=== PATIENT | female | born 1955 | race African-American/Black ===

== ENCOUNTER 2017-10-04 11:37 | Inpatient (IN) | payer MEDICARE, MEDICAID ==
[~2017-10-04] VITALS: Ht 149.9 cm; Wt 62.6 kg
--- NOTE | 2017-10-04 11:40 | NUR ---
PT BIB [facility] FROM [facility] C/O HTN, ANXIETY, PALPITATIONS, CHEST PRESSURE, HEADACHE, AND "FEEL THE WHEEZES". NO SOB NOTED HOWEVER WHEEZES ARE AUDIBLE. A/OX4. NO NEURO DEFICITS NOTED. SKIN WARM NONDIAPHORETIC. +NAUSEA, -VOMITING/DIARRHEA. DENIES CHEST PAIN, DESCRIBES THE PRESSURE "LIKE I CAN'T CATCH MY BREATH". PT APPEARS ANXIOUS, SPEAKING QUICKLY AND AT LENGTH. PLACED IN ER BED 04 ON MONITOR.
[2017-10-04] MEDS ORDERED: IPRATROPIUM NEB FS 0.5 MG/2.5 ML AMPUL.NEB NEB ONE (12:00)
[2017-10-04] MEDS ORDERED: ASPIRIN 325 MG TABLET PO ONE (12:00)
[2017-10-04] MEDS ORDERED: ALBUTEROL FS 2.5 MG/0.5 ML VIAL.NEB NEB ONE (12:00)
--- NOTE | 2017-10-04 12:01 | NUR ---
PAGED RT FOR BREATHING TX
[2017-10-04] MEDS ORDERED: IPRATROPIUM NEB FS 0.5 MG/2.5 ML AMPUL.NEB ONE (12:07)
[2017-10-04] MEDS ORDERED: ALBUTEROL FS 2.5 MG/0.5 ML VIAL.NEB ONE (12:07)
[2017-10-04 12:17] LABS: BASOPHILS # (AUTO) 0.1 /CMM (0.0-0.2); BASOPHILS % (AUTO) 1.1 % (0.0-2.0); EOSINOPHILS # (AUTO) 0.2 /CMM (0.0-0.7); EOSINOPHILS % (AUTO) 3.8 % (0.0-6.0); HEMATOCRIT 35 % (33-45); HEMOGLOBIN 10.9 g/dL (11.5-14.8); LYMPHOCYTES # (AUTO) 2.1 /CMM (0.8-4.8); LYMPHOCYTES % (AUTO) 33.5 % (20.0-44.0); MEAN CORPUSCULAR HEMOGLOBIN 24 PG (26.0-33.0); MEAN CORPUSCULAR HGB CONC 31 g/dl (31.0-36.0); MEAN CORPUSCULAR VOLUME 77 fL (82-100); MONOCYTES # (AUTO) 0.7 /CMM (0.1-1.30); MONOCYTES % (AUTO) 10.7 % (2.0-12.0); NEUTROPHILS # (AUTO) 3.1 /CMM (1.8-8.9); NEUTROPHILS % (AUTO) 50.9 % (43.0-81.0); PLATELET COUNT (AUTO) 324 /CMM (150-450); RED BLOOD CELL COUNT(AUTO) 4.54 MIL/uL (4.0-5.2); WHITE BLOOD COUNT (AUTO) 6.2 K/uL (4.3-11.0)
[2017-10-04 12:19] LABS: CALCIUM, SERUM 9.2 mg/dL (8.5-10.1); CARBON DIOXIDE 26 mmol/L (21-32); CHLORIDE 106 mmol/L (98-107); CREATININE 0.7 mg/dL (0.6-1.3); GLUCOSE 96 mg/dL (74-106); POTASSIUM 3.7 mmol/L (3.5-5.1); SODIUM SERUM 141 mmol/L (136-145); UREA NITROGEN, BLOOD 6 mg/dL (7-18)
[2017-10-04 12:27] LABS: TROPONIN I < 0.017 ng/mL (0.00-0.056)
[2017-10-04 12:32] LABS: ALANINE AMINOTRANSFERASE 18 U/L (12-78); ALBUMIN 3.6 g/dL (3.4-5.0); ALKALINE PHOSPHATASE 86 U/L (46-116); ASPARTATE AMINOTRANSFERASE 15 U/L (15-37); B-TYPE NATRIURETIC PEPTIDE 35 PG/ML (0-125); BILIRUBIN,TOTAL 0.2 mg/dL (0.2-1.0); TOTAL PROTEIN, SERUM 7.4 g/dL (6.4-8.2)
[2017-10-04] MEDS ORDERED: ASPIRIN 325 MG TABLET ONE (12:34)
[2017-10-04] MEDS ORDERED: LORAZEPAM INJ 2 MG/ML VIAL ONE (12:57)
[2017-10-04] MEDS ORDERED: LORAZEPAM INJ 2 MG/ML VIAL IV ONE (13:00)
--- NOTE | 2017-10-04 13:32 | NUR ---
RESTING QUIETLY, NAD NOTED. ALL NEEDS ATTENDED TO. VSS.
--- NOTE | 2017-10-04 14:04 | NUR ---
REPORT GIVEN TO XAVIER CAPPS FOR ADMISSION
--- NOTE | 2017-10-04 15:15 | NUR ---
PT TRANSPORTED TO [facility] in [place] IN STABLE CONDITION VIA ACLS PROTOCOL
--- NOTE | 2017-10-04 15:20 | NUR ---
SCHEDULING ANALYST NOTES RECEIVED PT FROM E.R. STAFF, AWAKE, ALERT AND ORIENTED, DENIES PAIN, NOT IN DISTRESS, ASSISTED TO BED, MADE COMFORTABLE, ROOM SET UP ORIENTATION PROVIDED, VERBALIZED UNDERSTANDING, CALL LIGHT WITHIN REACH, AWAITING ADMISSION ORDERS FROM MD.
[2017-10-04] MEDS ORDERED: IV NS 0.9% 1,000 ML IV PRN (15:21)
[2017-10-04] MEDS ORDERED: ACETAMINOPHEN 325 MG TABLET PO PRN (15:30)
[2017-10-04] MEDS ORDERED: MAGNESIUM HYDROXIDE 30 ML UDC PO PRN (15:30)
[2017-10-04] MEDS ORDERED: MAG HYDROX/AL HYDROX/SIMETH 30 ML UDC PO PRN (15:30)
[2017-10-04] MEDS ORDERED: Z GUARD REMEDY 2 OZ OINT TP PRN (15:30)
[2017-10-04] MEDS ORDERED: ALPRAZOLAM 0.25 MG TABLET PO PRN (15:30)
[2017-10-04] MEDS ORDERED: HYDROCODONE/APAP 5/325MG 1 EACH TABLET PO PRN (15:30)
[2017-10-04 16:07] LABS: CHOLESTEROL 187 mg/dL (<200); HDL CHOLESTEROL 70 mg/dL (40-60); LDL 105 mg/dL (0-99); TRIGLYCERIDES 62 mg/dL (30-150)
[2017-10-04] MEDS ORDERED: hydrALAZINE HCL 25 MG TABLET PO PRN ×2 (17:30→18:00)
[2017-10-04] MEDS: ENOXAPARIN SODIUM 40 MG/0.4 ML DISP.SYRIN SQ SCH (17:54)
--- NOTE | 2017-10-04 19:00 | NUR ---
PROJECT DEVELOPMENT MANAGER NOTES PT IN BED, AWAKE, ALERT AND ORIENTED, NO COMPLAINT OF CHEST PAIN, NOT IN DISTRESS, TOLERATING ROOM AIR WELL, ON TELE MONITORING, SR 60'S, SEEN BY DR. BALDERRAMA AND DR. FUENTES, PROCEDURE EXPLAINED TO PT BY MD, VERBALIZED UNDERSTANDING, CONSENT FORM SIGNED, ASSISTED WITH DINNER, IV FLUIDS INFUSING WELL, CALL LIGHT PLACED WITHIN REACH, ALL NEEDS ATTENDED.
--- NOTE | 2017-10-04 19:18 | NUR ---
RN NOTES RECEIVED PT IN BED, AWAKE, A/O 3, VERBALLY RESPONSIVE. NO DISTRESS, NO SOB NOTED. RESPIRATION IS EVEN AND UNLABORED. DENIES ANY CHEST PAIN OR ANY PAIN OR DISCOMFORT AT THIS TIME. IV SITE ON RAC INTACT AND PATENT, NO S/S OF INFILTRATION AT THIS TIME. PLAN OF CARE DISCUSSED WITH P[T , VERBALIZED UNDERSTANDING. ALL NEEDS ATTENDED AND MET. KEPT COMFORTABLE. SAFETY PRECAUTIONS OBSERVED. CALL LIGHT WITHIN REACH. WILL CONTINUE TO MONITOR.
[2017-10-04 20:00] VITALS: BP 124/78
[2017-10-04] MEDS: ALBUTEROL FS 2.5 MG/3 ML VIAL.NEB NEB PRN (20:32)
[2017-10-04 20:52] LABS: IRON, SERUM 76 ug/dl (50-175); TOTAL IRON BINDING CAPACITY 401 ug/dl (250-450)
[2017-10-04 21:31] LABS: TROPONIN I < 0.017 ng/mL (0.00-0.056)
[2017-10-04] MEDS: ATORVASTATIN 10 MG TABLET PO SCH (22:01)
[2017-10-05] VITALS: BP 166/77
[2017-10-05] MEDS: ZOLPIDEM TARTRATE 5 MG TABLET PO PRN ×2 (00:57→23:40)
[2017-10-05 04:00] VITALS: BP 153/84
--- NOTE | 2017-10-05 05:00 | NUR ---
PT'S IV LINE ON RAC LEAKING, REMOVED. PRESSURE APPLIED. NO BLEEDING NOTED. INSERTED IV ON RFA G # 22, WITH GOOD VENOUS RETURN . PT ARASELI WELL.
--- NOTE | 2017-10-05 06:54 | NUR ---
RN NOTES PT IN BED, RESTING COMFORTABLY, AROUSES EASILY. , A/O 3, VERBALLY RESPONSIVE. NO DISTRESS, NO SOB NOTED. RESPIRATION IS EVEN AND UNLABORED. DENIES ANY CHEST PAIN OR ANY PAIN OR DISCOMFORT AT THIS TIME. IV SITE ON RFA INTACT AND PATENT, NO S/S OF INFILTRATION AT THIS TIME. IVF INFUSING WELL. PT ON NPO EXCEPT MEDS STARTING MIDNIGHT., PT AWARE. ALL NEEDS ATTENDED AND MET. KEPT COMFORTABLE. SAFETY PRECAUTIONS OBSERVED. CALL LIGHT WITHIN REACH. WILL ENDORSE TO NEXT SHIFT FOR FRED.
[2017-10-05] MEDS: ALBUTEROL FS 2.5 MG/3 ML VIAL.NEB NEB PRN (07:23)
--- NOTE | 2017-10-05 07:30 | NUR ---
BRAKE REPAIRER AIR NOTES PT IN BED, AWAKE, ALERT AND ORIENTED, NO COMPLAINT OF PAIN OR ANY DISCOMFORT, RESPIRATIONS NORMAL, CALL LIGHT WITHIN REACH, IV FLUIDS INFUSING WELL, FOR STRESS TEST TODAY, PT INFORMED OF PLAN OF CARE, VERBALIZED UNDERSTANDING.
[2017-10-05 08:00] VITALS: BP 158/98
[2017-10-05] MEDS ORDERED: LOSARTAN POTASSIUM 25 MG TABLET PO SCH (09:00)
[2017-10-05] MEDS: ASPIRIN 81 MG TAB.CHEW PO SCH (09:01)
[2017-10-05 09:59] LABS: HEMATOCRIT 34 % (33-45); HEMOGLOBIN 10.9 g/dL (11.5-14.8); MEAN CORPUSCULAR HEMOGLOBIN 26 PG (26.0-33.0); MEAN CORPUSCULAR HGB CONC 32 g/dl (31.0-36.0); MEAN CORPUSCULAR VOLUME 80 fL (82-100); PLATELET COUNT (AUTO) 304 /CMM (150-450); RDW COEFFICIENT OF VARIATION 31.4 (11.5-15.0); RED BLOOD CELL COUNT(AUTO) 4.28 MIL/uL (4.0-5.2); WHITE BLOOD COUNT (AUTO) 5.1 K/uL (4.3-11.0)
[2017-10-05 10:09] LABS: CALCIUM, SERUM 8.7 mg/dL (8.5-10.1); CREATININE 0.7 mg/dL (0.6-1.3); MAGNESIUM 1.8 mg/dL (1.8-2.4); PHOSPHORUS 3.4 mg/dL (2.5-4.9); POTASSIUM 3.6 mmol/L (3.5-5.1)
[2017-10-05 11:51] LABS: LYMPHOCYTES % (MANUAL) 24 % (16-48); MONOCYTES % (MANUAL) 8 % (0-11.0); NEUTROPHILS % (MANUAL) 68 (42-76)
[2017-10-05 12:00] VITALS: BP 152/74
--- NOTE | 2017-10-05 12:00 | NUR ---
RN MS NOTES PT IN BED, AWAKE, ALERT AND ORIENTED, NO COMPLAINT OF PAIN, NOT IN DISTRESS, PICKED UP FOR STRESS TEST, IN STABLE CONDITION.
[2017-10-05] MEDS ORDERED: REGADENOSON 0.4 MG/5 ML DISP.SYRIN IVP ONE (12:30)
[2017-10-05 16:00] VITALS: BP 152/68
[2017-10-05] MEDS: LOSARTAN POTASSIUM 25 MG TABLET PO SCH (16:40)
[2017-10-05] MEDS: HYDROCODONE/APAP 10/325MG 1 EA TABLET PO PRN ×2 (16:41→22:35)
[2017-10-05] MEDS: ENOXAPARIN SODIUM 40 MG/0.4 ML DISP.SYRIN SQ SCH (16:48)
--- NOTE | 2017-10-05 19:00 | NUR ---
RN MS NOTES PT IN BED, AWAKE, ALERT AND ORIENTED, PAIN MEDICATION GIVEN FOR PAIN MANAGEMENT, NOT IN DISTRESS, TOLERATING CURRENT DIET WELL, CALL LIGHT WITHIN REACH, IV FLUIDS INFUSING WELL, PM MEDS GIVEN, ALL NEEDS ATTENDED.
--- NOTE | 2017-10-05 19:15 | NUR ---
MS RN NOTES RECEIVED PT IN BED, AWAKE, A/O X 3, NO DISTRESS, NO SOB NOTED. VERBALLY RESPONSIVE. ABLE TO MAKE NEEDS KNOWN. IV SITE ON RFA G # 22, INTACT AND PATENT, NO S/S OF INFILTRATION NOTED. IVF INFUSING WELL. DENIES ANY CHEST PAIN OR DISCOMFORT AT THIS TIME. ALL NEEDS ATTENDED AND MET. KEPT COMFORTABLE. CALL LIGHT WITHIN REACH. SAFETY PRECAUTIONS OBSERVED. WILL CONTINUE TO MONITOR.
[2017-10-05 20:00] VITALS: BP 124/77
[2017-10-05] MEDS ORDERED: ATORVASTATIN 10 MG TABLET ONE (22:16)
[2017-10-05] MEDS: ATORVASTATIN 10 MG TABLET PO SCH (22:31)
[2017-10-05] MEDS: ONDANSETRON HCL/PF 4 MG/2 ML VIAL IVP PRN (22:37)
[2017-10-06] MEDS: IV NS 0.9% 1,000 ML IV PRN ×2 (03:27→13:30)
[2017-10-06] MEDS: HYDROCODONE/APAP 10/325MG 1 EA TABLET PO PRN ×3 (04:24→22:04)
--- NOTE | 2017-10-06 06:31 | NUR ---
MS RN NOTES PT IN BED, RESTING COMFORTABLY AT THIS TIME, AROUSES EASILY, A/O X 3, NO DISTRESS, NO SOB NOTED. VERBALLY RESPONSIVE. ABLE TO MAKE NEEDS KNOWN. IV SITE ON RFA G # 22, INTACT AND PATENT, NO S/S OF INFILTRATION NOTED. IVF INFUSING WELL. PT IS AMBULATORY. DENIES ANY CHEST PAIN OR DISCOMFORT AT THIS TIME. CALL LIGHT WITHIN REACH. SAFETY PRECAUTIONS OBSERVED. WILL ENDORSE TO NEXT SHIFT FOR FRED.
[2017-10-06 06:43] LABS: CALCIUM, SERUM 8.8 mg/dL (8.5-10.1); CREATININE 0.8 mg/dL (0.6-1.3); MAGNESIUM 1.8 mg/dL (1.8-2.4); PHOSPHORUS 4.2 mg/dL (2.5-4.9); POTASSIUM 3.9 mmol/L (3.5-5.1)
[2017-10-06 06:48] LABS: EOSINOPHILS # (AUTO) 0.3 /CMM (0.0-0.7); EOSINOPHILS % (AUTO) 5.6 % (0.0-6.0); HEMATOCRIT 34 % (33-45); HEMOGLOBIN 10.8 g/dL (11.5-14.8); LYMPHOCYTES # (AUTO) 1.7 /CMM (0.8-4.8); LYMPHOCYTES % (AUTO) 32.1 % (20.0-44.0); MEAN CORPUSCULAR HEMOGLOBIN 25 PG (26.0-33.0); MEAN CORPUSCULAR HGB CONC 32 g/dl (31.0-36.0); MEAN CORPUSCULAR VOLUME 79 fL (82-100); MONOCYTES % (AUTO) 18.5 % (2.0-12.0); NEUTROPHILS # (AUTO) 2.3 /CMM (1.8-8.9); NEUTROPHILS % (AUTO) 43.8 % (43.0-81.0); PLATELET COUNT (AUTO) 319 /CMM (150-450); RDW COEFFICIENT OF VARIATION 30.3 (11.5-15.0); RED BLOOD CELL COUNT(AUTO) 4.29 MIL/uL (4.0-5.2); WHITE BLOOD COUNT (AUTO) 5.2 K/uL (4.3-11.0)
--- NOTE | 2017-10-06 07:00 | NUR ---
RN NOTES: PATIENT RESTING IN BED. NONLABORED BREATHING NOTED. NO SIGNS OF DISTRESS. AOX3. IV SITE PATENT AND INTACT. BED IN LOWEST LOCKED POSITION. CALL LIGHT WITHIN REACH. WILL CONTINUE TO MONITOR
[2017-10-06 08:00] VITALS: BP 127/79
[2017-10-06] MEDS: ASPIRIN 81 MG TAB.CHEW PO SCH (08:08)
[2017-10-06] MEDS: LOSARTAN POTASSIUM 25 MG TABLET PO SCH ×2 (08:08→17:17)
[2017-10-06 09:02] LABS: BAND % (MANUAL) 1 % (0.0-5.0); EOSINOPHILS % (MANUAL) 3 % (0-4); LYMPHOCYTES % (MANUAL) 35 % (16-48); MONOCYTES % (MANUAL) 9 % (0-11.0); NEUTROPHILS % (MANUAL) 52 (42-76)
--- NOTE | 2017-10-06 10:44 | NUR ---
RN NOTES: PATIENT STATES HAVING A HEADACHE. PATIENT PERRLA. NO WEAKNESS UPON HAND GRASP. NO SENSORY DEFICIT. NONLABORED BREATHING NOTED. PATIENT ABLE TO AMBULATE TO BATHROOM. NO ALTERED MENTAL STATUS.
[2017-10-06] MEDS: ALBUTEROL FS 2.5 MG/3 ML VIAL.NEB NEB PRN (11:06)
--- NOTE | 2017-10-06 12:10 | NUR ---
RN NOTES: DR BALDERRAMA ORDERED TO TRANSFER PATIENT TO TELE. PATIENT SINUS RHYTHEM 60 BEATS/MIN
[2017-10-06] MEDS ORDERED: hydrALAZINE HCL 25 MG TABLET PO PRN (12:30)
[2017-10-06] MEDS ORDERED: diphenhydrAMINE HCL 50 MG/ML VIAL IV PRN (12:30)
--- NOTE | 2017-10-06 14:22 | NUR ---
GOOD IV LINE NEEDED, RN WILL CALL WHEN READY.
[2017-10-06] MEDS ORDERED: IV NS 0.9% 250 ML IV ONE (14:50)
[2017-10-06] MEDS ORDERED: IOHEXOL-350 100 ML VIAL IV ONE (14:50)
--- NOTE | 2017-10-06 15:31 | NUR ---
SECOND IV LINE STILL NO GOOD, RN WILL CALL WHEN READY.
[2017-10-06 16:00] VITALS: BP 138/84
--- NOTE | 2017-10-06 16:09 | NUR ---
RN NOTES: ATTEMPTED IV LINE INSERTION X2. GAUGE 20 ON RIGHT AC STARTED PATENT AND INTACT. HOWEVER, DURING CTA CAROTID, IT INFILTRATED. PATIENT OFFERED ICE PACK AND IV LINE REMOVED. UNABLE TO PERFORM CTA CAROTID. DR BALDERRAMA NOTIFIED AND ORDERED TO DISCONTINUE THE CTA CAROTID. GAUGE 22 ON RIGHT ARM PATENT AND INTACT
[2017-10-06] MEDS: ENOXAPARIN SODIUM 40 MG/0.4 ML DISP.SYRIN SQ SCH (17:21)
--- NOTE | 2017-10-06 18:15 | NUR ---
RN NOTES: ATTEMPTED IV LINE INSERTION X2. GAUGE 20 ON RIGHT AC STARTED PATENT AND INTACT. HOWEVER, DURING CTA CAROTID, IT INFILTRATED. PATIENT OFFERED ICE PACK AND IV LINE REMOVED. UNABLE TO PERFORM CTA CAROTID. DR BALDERRAMA NOTIFIED AND ORDERED TO DISCONTINUE THE CTA CAROTID. CTA BRAIN DISCONTINUED WELL DUE TO UNAVAILABILITY OF ACCESS. NO ORDERS FOR A MIDLINE FROM DR BALDERRAMA. SPOKE WITH CARRIE FROM RADIOLOGY. GAUGE 22 ON RIGHT ARM PATENT AND INTACT
--- NOTE | 2017-10-06 19:20 | NUR ---
MS RN NOTES RECEIVED PT IN BED, AWAKE, A/O X 3, NO DISTRESS, NO SOB NOTED. VERBALLY RESPONSIVE. ABLE TO MAKE NEEDS KNOWN. IV SITE ON RFA G # 22, INTACT AND PATENT, NO S/S OF INFILTRATION NOTED. IVF INFUSING WELL. DENIES ANY CHEST PAIN OR DISCOMFORT AT THIS TIME. PT IS AMBULATORY. VOIDING FREELY WITH YELLOW URINE. ALL NEEDS ATTENDED AND MET. KEPT COMFORTABLE. CALL LIGHT WITHIN REACH. SAFETY PRECAUTIONS OBSERVED. WILL CONTINUE TO MONITOR.
--- NOTE | 2017-10-06 19:30 | NUR ---
RN FINAL NOTES: PATIENT RESTING IN BED. NONLABORED BREATHING NOTED. NO SIGNS OF DISTRESS. AOX3. IV SITE PATENT AND INTACT. BED IN LOWEST LOCKED POSITION. CALL LIGHT WITHIN REACH. PATIENT DENIES CHEST PAIN. SINUS RHYTHM ON TELE MONITOR. PATIENT PERRLA, ABLE TO AMBULATE TO BATHROOM, NO WEAKNESS, NO SLURRED SPEECH. PATIENT KEPT CLEAN AND DRY. PATIENT ATE DINNER. BED IN LOWEST LOCKED POSITION. CALL LIGHT WITHIN REACH. ENDORSED TO NEXT SHIFT
[2017-10-06 20:00] VITALS: BP 146/89
[2017-10-06] MEDS: ONDANSETRON HCL/PF 4 MG/2 ML VIAL IVP PRN (20:20)
[2017-10-06 20:29] VITALS: BP 146/89
[2017-10-06] MEDS: ATORVASTATIN 10 MG TABLET PO SCH (22:02)
[2017-10-07] VITALS (7 sets, daily range): BP systolic 136–159; BP diastolic 80–110
[2017-10-07] MEDS: ZOLPIDEM TARTRATE 5 MG TABLET PO PRN (01:52)
[2017-10-07] MEDS: IV NS 0.9% 1,000 ML IV PRN (06:26)
[2017-10-07] MEDS: HYDROCODONE/APAP 10/325MG 1 EA TABLET PO PRN ×2 (06:31→11:57)
--- NOTE | 2017-10-07 07:00 | NUR ---
WASHER OFF NOTES PT IN BED, AWAKE, A/O X 3,WATCHING TV AT THIS TIME. NO DISTRESS, NO SOB NOTED. VERBALLY RESPONSIVE. ON TELE MONITOR, A PACING 61. ABLE TO MAKE NEEDS KNOWN. IV SITE ON RFA G # 22, INTACT AND PATENT, NO S/S OF INFILTRATION NOTED. IVF INFUSING WELL. DENIES ANY CHEST PAIN OR DISCOMFORT AT THIS TIME. PT IS AMBULATORY. VOIDING FREELY WITH YELLOW URINE. ALL NEEDS ATTENDED AND MET. KEPT COMFORTABLE. CALL LIGHT WITHIN REACH. SAFETY PRECAUTIONS OBSERVED. WILL ENDORSE TO NEXT SHIFT FOR FRED.
--- NOTE | 2017-10-07 07:30 | NUR ---
RN OPENING NOTES RECEIVED PATIENT RESTING COMFORTABLY IN BED. AOX4. NO DISTRESS, NO SOB NOTED. ON TELE MONITOR, A PACING 60. IV ACCESS ON RFA 22G, INTACT AND PATENT, NO S/S OF INFILTRATION NOTED NS RUNNING AT 100MLS/HR. DENIES ANY CHEST PAIN OR DISCOMFORT AT THIS TIME. PT IS AMBULATORY. RESPIRATIONS EVEN AND UNLABORED. BED LOCKED IN THE LOWEST POSITION WITH SIDE RAILS X2. WILL CONTINUE TO MONITOR, ASSESS AND EDUCATE PATIENT THROUGHOUT SHIFT.
[2017-10-07 08:16] LABS: EOSINOPHILS # (AUTO) 0.3 /CMM (0.0-0.7); EOSINOPHILS % (AUTO) 6.4 % (0.0-6.0); HEMATOCRIT 34 % (33-45); LYMPHOCYTES # (AUTO) 1.7 /CMM (0.8-4.8); LYMPHOCYTES % (AUTO) 31.8 % (20.0-44.0); MEAN CORPUSCULAR HEMOGLOBIN 26 PG (26.0-33.0); MEAN CORPUSCULAR HGB CONC 32 g/dl (31.0-36.0); MEAN CORPUSCULAR VOLUME 80 fL (82-100); MONOCYTES # (AUTO) 0.9 /CMM (0.1-1.30); MONOCYTES % (AUTO) 16.7 % (2.0-12.0); NEUTROPHILS # (AUTO) 2.4 /CMM (1.8-8.9); NEUTROPHILS % (AUTO) 45.1 % (43.0-81.0); PLATELET COUNT (AUTO) 327 /CMM (150-450); RDW COEFFICIENT OF VARIATION 30.6 (11.5-15.0); WHITE BLOOD COUNT (AUTO) 5.4 K/uL (4.3-11.0)
[2017-10-07] MEDS: LOSARTAN POTASSIUM 25 MG TABLET PO SCH ×2 (08:35→17:13)
[2017-10-07] MEDS: ASPIRIN 81 MG TAB.CHEW PO SCH (08:35)
[2017-10-07] MEDS: ONDANSETRON HCL/PF 4 MG/2 ML VIAL IVP PRN (08:35)
[2017-10-07 08:37] LABS: CALCIUM, SERUM 8.6 mg/dL (8.5-10.1); CREATININE 0.7 mg/dL (0.6-1.3); MAGNESIUM 1.8 mg/dL (1.8-2.4); PHOSPHORUS 3.7 mg/dL (2.5-4.9); POTASSIUM 4.2 mmol/L (3.5-5.1)
[2017-10-07 09:31] LABS: EOSINOPHILS % (MANUAL) 6 % (0-4); LYMPHOCYTES % (MANUAL) 32 % (16-48); MONOCYTES % (MANUAL) 9 % (0-11.0); NEUTROPHILS % (MANUAL) 53 (42-76)
[2017-10-07] MEDS: ALBUTEROL FS 2.5 MG/3 ML VIAL.NEB NEB PRN (11:43)
[2017-10-07] MEDS ORDERED: ASPI81TA2 PO (13:18)
[2017-10-07] MEDS ORDERED: ATOR10TA PO (13:18)
[2017-10-07] MEDS ORDERED: LOSA25TA3 PO (13:18)
[2017-10-07] MEDS: ENOXAPARIN SODIUM 40 MG/0.4 ML DISP.SYRIN SQ SCH (17:22)
--- NOTE | 2017-10-07 18:40 | NUR ---
RN NON ADMIN (WASTE NOTES) EMIL 10 PULLED FOR PAIN MANAGEMENT. PATIENT DISCHARGED OUT OF SYSTEM. PHARMACY AWARE. DISCREPENCIES TO BE RESOLVED WITH JEFRY STEVENS. WITNESSED WASTE BY JEFRY STEVENS
--- NOTE | 2017-10-07 19:40 | NUR ---
RN CLOSING NOTES PATIENT AOX4. ALL DISCHARGE TEACHING DONE. NO ACUTE DISTRESS. ALL EXITCARE PROVIDED. ALL DOCUMENTATION COMPLETED. RESPIRATIONS EVEN AND UNLABORED. NO PAIN. DENIES CP AND SOB. ALL NEEDS MET ALL MEDS GIVEN APPROPRIATE. ALL BELONGINGS ACCOUNTED FOR. Addendum: 10/07/17 at 1948 by ANAHI WONG RN RN CLOSING NOTES PATIENT AOX4. ALL DISCHARGE TEACHING DONE. NO ACUTE DISTRESS. ALL EXITCARE PROVIDED. ALL DOCUMENTATION COMPLETED. RESPIRATIONS EVEN AND UNLABORED. NO PAIN. DENIES CP AND SOB. ALL NEEDS MET ALL MEDS GIVEN APPROPRIATE. ALL BELONGINGS ACCOUNTED FOR. PATIENT DISCHARGED AT 1826
--- NOTE | 2017-10-08 10:57 | NUR ---
RN NOTES NORCO NOT WASTED. TAKEN DOWN TO PHARMACY BY GASOLINE SERVICE ATTENDANT DIANE AND GIVEN TO PHARMACIST HEATHER.
== END 2017-10-07 18:35 | disposition home or self-care (01) | DRG 305 ==
LOC: ER 11:38 → TELE 14:09 → MED 10-05 12:35 → TELE 10-06 12:39
PROVIDERS: ADMIT Internal Medicine; ATTEND Internal Medicine
DX: I10 Essential (primary) hypertension (principal); D50.9 Iron deficiency anemia, unspecified; R07.9 Chest pain, unspecified; I25.10 Atherosclerotic heart disease of native coronary artery without angina pectoris; E78.5 Hyperlipidemia, unspecified; F41.9 Anxiety disorder, unspecified; Z95.1 Presence of aortocoronary bypass graft; G43.909 Migraine, unspecified, not intractable, without status migrainosus; J44.9 Chronic obstructive pulmonary disease, unspecified; K21.9 Gastro-esophageal reflux disease without esophagitis; Z86.73 Personal history of transient ischemic attack (TIA), and cerebral infarction without residual deficits; Z88.2 Allergy status to sulfonamides; Z95.0 Presence of cardiac pacemaker
CPT/HCPCS: 36415; 70450-TC; 71010-TC; 80048-TC; 80061-TC; 80076-TC; 82962-TC; 83540-TC; 83735-TC; 83880; 84100-TC; 84484-TC; 85025-TC; 87081-TC; 93307-TC; A4606; A9502; J1650; J2060; J2405; J2785; J7030; J7050; Q9967; Z7610